=== PATIENT | female | born 1970 | race Caucasian/White ===

== ENCOUNTER → 2024-07-16 | Outpatient (CLI) | payer MEDICARE, MEDICAID, SELFPAY ==
--- NOTE | 2024-07-16 10:19 | XR_ITS ---
Examination: Right knee 4 views TECHNIQUE: AP oblique lateral axial right knee 4 views Exam date and time: July 16, 2024 1115 hours INDICATIONS: Right knee pain beginning 2 years ago. FINDINGS: Advanced tricompartment osteoarthritis No fracture or patellar dislocation IMPRESSION: Advanced tricompartment osteoarthritis
--- NOTE | 2024-07-16 10:19 | XR_ITS ---
EXAMINATION: Ankle, right 3 views . Technique: Ankle AP, oblique, lateral 3 views Date and time of exam: July 16, 2024 1110 hours INDICATIONS: Right ankle pain beginning 2 years ago. FINDINGS: Moderate to advanced osteoarthritis tibiotalar joint Moderate osteoarthritis subtalar joint 8mm plantar 4 mm posterior bony calcaneal spurs Ossification in the Achilles insertion No fracture Soft tissue vascular calcification IMPRESSION: Moderate to advanced osteoarthritis tibiotalar joint
== END | disposition home or self-care (01) ==
PROVIDERS: PCP Physician Assistant; Referring Provider Physician Assistant; Visit Provider Physician Assistant
DX: M17.11 Unilateral primary osteoarthritis, right knee (principal); M19.071 Primary osteoarthritis, right ankle and foot
CPT/HCPCS: 73564; 73610